=== PATIENT | male | born 1970 | race African-American/Black ===

== ENCOUNTER 2016-12-10 11:34 | Emergency (ER) | payer OTHER ==
[~2016-12-10] VITALS: Ht 177.8 cm; Wt 67.1 kg
[~2016-12-10 11:34] MED LIST: LISINOPRIL20 MG PO; NO DOZ200 MG PO; NORCO 5-325 TA1 EACH PO; PREDNISONE50 MG PO
[2016-12-10] MEDS ORDERED: PROAIR HFA8.5 GM INH (12:43)
[2016-12-10] MEDS ORDERED: AZITHROMYCIN 2250 MG PO (12:43)
[2016-12-10 12:53] VITALS: BP 134/85
== END 2016-12-10 12:56 | disposition home or self-care (01) ==
LOC: ER 11:34
DX: J18.8 Other pneumonia, unspecified organism (principal); M79.1 Myalgia; I10 Essential (primary) hypertension; F17.210 Nicotine dependence, cigarettes, uncomplicated; F10.99 Alcohol use, unspecified with unspecified alcohol-induced disorder

== ENCOUNTER 2018-09-18 09:40 | Emergency (ER) | payer OTHER ==
[~2018-09-18] VITALS: Ht 177.8 cm; Wt 68.0 kg
[~2018-09-18 09:40] MED LIST changes: +AZITHROMYCIN 2250 MG PO; +PROAIR HFA8.5 GM INH
[2018-09-18 10:10] LABS: URINE CLARITY CLEAR; URINE COLOR YELLOW
[2018-09-18 10:11] LABS: URINE BILIRUBIN NEGATIVE (Negative); URINE BLOOD TRACE (Negative); URINE GLUCOSE-RANDOM* NEGATIVE (Negative); URINE KETONES NEGATIVE (Negative); URINE LEUKOCYTES NEGATIVE (Negative); URINE NITRITE NEGATIVE (Negative); URINE PROTEIN (DIPSTICK) NEGATIVE (Negative); URINE UROBILINOGEN 0.2 E.U./dl (0.2-1.0)
[2018-09-18 10:23] LABS: ABSOLUTE NEUTROPHILS 3.9 thou/uL (1.4-8.2); BASOPHILS 1.2 % (0.0-2.0); EOSINOPHILS 1.5 % (0.0-3.0); HEMOGLOBIN 15.8 gm/dL (14.0-18.0); LYMPHOCYTES 29.7 % (24.0-44.0); MCH 32.1 pg (26.0-34.0); MCHC 34.4 g/dL (28.0-37.0); MCV 93.2 fL (80.0-100.0); MONOCYTES 7.2 % (1.0-8.0); PLATELET COUNT 229 thou/uL (150-400); POLYS 60.4 % (36.0-66.0); RBC 4.93 mil/uL (4.50-6.00); RDW 13.8 % (10.5-14.5); WBC 6.4 thou/uL (4.0-11.0)
[2018-09-18 10:26] LABS: ANION GAP 8 mmol/L (7-16); BUN 10 mg/dL (7-18); CALCIUM 9.2 mg/dL (8.5-10.1); CHLORIDE 104 mmol/L (98-107); CO2 28 mmol/L (21-32); CREATININE 1.1 mg/dL (0.7-1.3); GLUCOSE 128 mg/dL (74-106); SODIUM 140 mmol/L (136-145)
[2018-09-18 10:35] LABS: TROPONIN-I <0.06 ng/mL (<0.06)
[2018-09-18] MEDS ORDERED: NORVASC5 MG PO (11:15)
[2018-09-18 12:16] VITALS: BP 146/87
--- NOTE | 2018-09-18 22:18 | EKG ---
[place] [address] [facility] [email or web address] [address] ELECTROCARDIOGRAM REPORT Name: TESFAYEJERRY RODRIGUES Room #: DEP [facility] [id number] Admission: 09/18/18 Attend Phys: Discharge: 09/18/18 Date of : 66 Report #: [id number] THIS REPORT FOR: //name// [facility] ED Test Date: 2018-09-18 Test Time: 10:02:51 Pat Name: JERRY CARLIN Department: Room: Gender: Retail Helper: : 1970 Requested By: Sara Mccarthy Order Number: [id number] MD: Eugene Lucas Measurements Intervals Cook Rate: 78 P: 69 MI: 133 QRS: 43 QRSD: 91 T: 45 QT: 384 QTc: 438 Interpretive Statements Sinus rhythm LAE, consider biatrial enlargement Compared to ECG 10/25/2014 13:47:59 No significant changes Electronically Signed On 09-18-2018 22:18:35 RETORT ENGINEER by Eugene Lucas [email or web address] <ELECTRONICALLY SIGNED> By: Eugene Lucas MD 09/18/18 2218 1002 1002 Eugene Lucas MD /GREGG
== END 2018-09-18 11:25 | disposition home or self-care (01) ==
LOC: ER 09:40
PROVIDERS: Student in an Organized Health Care Education/Training Program
DX: I10 Essential (primary) hypertension (principal); F17.210 Nicotine dependence, cigarettes, uncomplicated

== ENCOUNTER → 2019-10-16 | Outpatient (CLI) | payer OTHER ==
[~2019-10-16] MED LIST changes: +NORVASC5 MG PO
--- NOTE | 2019-10-18 09:28 | PATH ---
[facility] [place] [address] PATHOLOGY RPT PROCEDURE Name: JERRY ADAMS Room #: REG KLAUDIA Winslow#: [id number] Admission: 10/16/19 Date of : 66 Discharge: Report #: [id number] Path Case #: [id number] [facility] Accession Number: [id number] . 01 Material submitted: . PART A: cecum - CECAL MASS PART B: sigmoid colon - POLYP AT SIGMOID COLON x2. Modifiers: 2 . 01 Clinical history: . Pre-OP DX: Screening Post-OP DX: Colon mass . 02 Diagnosis: A. 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 - No definite invasive malignancy identified. . B. Polyp x2, at sigmoid colon, endoscopic biopsy: - Inflamed hyperplastic polyp. - Negative for dysplasia. (IUV:pit 10/17/2019) QTP 10/17/2019 1356 Local . 02 Comment: Dr. Rebecca Reddy has seen a paper sales representative slide of part A and concurs with my diagnosis. (IUV:pit 10/17/2019) . 02 Electronically signed: . Amber Mann MD, Pathologist NPI- [id number] . 01 Gross description: . A. Received in formalin labeled "Jerry Adams, cecal mass," are multiple segments of schuster soft tissue measuring 1.6 x 0.6 x 0.1 cm in aggregate dimensions. The specimen is filtered and entirely submitted in cassette A1. . B. Received in formalin labeled "Jerry Adams, polyp at sigmoid colon," and additionally labeled on the requisition as x2," are 3 segments of schuster soft tissue measuring 0.5 x 0.5 x 0.3 cm in aggregate dimensions and ranging from 0.4 to 0.5 cm in maximum dimension. The specimen is submitted entirely in cassette B1. (TSD; 10/16/2019) TOB/TOB 10/16/2019 1753 Local . 02 [place] [address] PATHOLOGY RPT PROCEDURE Name: JERRY ADAMS Room #: REG KLAUDIA Winslow#: [id number] Admission: 10/16/19 Date of : 66 Discharge: Report #: [id number] Path Case #: [id number] Pathologist provided ICD-10: D12.0, K63.5, Z12.11 . 02 CPT . 117401, 632913 Specimen Comment: A courtesy copy of this report has been sent to [phone] Specimen Comment: [phone] Specimen Comment: Report sent to / DR LEVINE Specimen Comment: A duplicate report has been generated due to demographic updates. Performed at: [address], [place], [place] [id number] MD Laci Carlisle MD Phone: [phone] Performed at: [address] [id number] MD Amber Mann MD Phone: [phone]
== END | disposition home or self-care (01) ==
LOC: GI 00:02
DX: Z12.11 Encounter for screening for malignant neoplasm of colon (principal); D12.0 Benign neoplasm of cecum; K51.40 Inflammatory polyps of colon without complications; K57.30 Diverticulosis of large intestine without perforation or abscess without bleeding; K64.8 Other hemorrhoids; K63.89 Other specified diseases of intestine; I10 Essential (primary) hypertension; J44.9 Chronic obstructive pulmonary disease, unspecified; Z98.890 Other specified postprocedural states; Z79.899 Other long term (current) drug therapy
CPT/HCPCS: 62110; 62900

== ENCOUNTER 2019-10-31 06:08 | Inpatient (IN) | payer OTHER ==
[~2019-10-31] VITALS: Ht 180.3 cm; Wt 72.6 kg
[~2019-10-31 06:08] MED LIST changes: +AMLODIPINE BESY10 MG PO; +ASA81BEC PO; +LIPITOR 40 MG T40 M1 PO; +LISINOPRIL-HCT1 EAC2 PO; +TRELEGY ELLIPT1 EACH INH
[2019-10-31 07:07] LABS: CALCIUM 9.6 mg/dL (8.5-10.1); CREATININE 1.3 mg/dL (0.7-1.3); POTASSIUM 3.5 mmol/L (3.5-5.1)
[2019-10-31 07:16] VITALS: BP 143/88
--- NOTE | 2019-10-31 14:42 | NUR ---
ASSUMED CARE AT 1100, SHIFT ASSESSMENT DONE, MEDS GIVEN, VSS. ADMISSION DONE. POST OP BOWEL RESECTION, HAS 3 DERMABOND SITES, CLEAN, DRY, INTACT. MIDLINE PRINEO DRESSING TO ABDOMEN, CLEAN, DRY, INTACT. REPORTED PAIN TO ABDOMEN, PRN PAIN MEDS GIVEN WITH SOME RELIEF. WILL CONTINUE TO ASSESS AND ASSIST WITH ADLs NEEDED.
[2019-10-31 16:10] VITALS: BP 117/79
[2019-10-31 19:35] VITALS: BP 124/90
--- NOTE | 2019-11-01 01:24 | NUR ---
PATIENT ASSESSED AND IS ALERT X 4. SKIN WARM AND DRY. RESP EVEN AND UNLABORED. LAYING IN BED. LUNGS CTA. ABDOMEN SOFT WITH HYPO BS. GALLARDO INTACT WITH YELLOW URINE IN LARGE AMOUNTS. ABDOMEN HAS 3 DURABOND SITE AND 1 MIDSTERNAL WITH DURABOND. NO DRAINAGE NOTED FROM ANY SITES. PATIENT GIVEN PAIN MEDICATION WITH GOOD RELIEF. PATIENT SLEPT WELL UNTIL 0000, THAN WOKE UP AND WANTED TO DANGLE. KEVIN DANGLING WELL. AT BEDSIDE SLEEPING. DENIES ANY NEEDS. IV SITE IN RIGHT FA INFUSING IV FLUIDS WELL. OTHER SITE HEALTHY.ON ROOM AIR. STRICT CLEAR LIQUIDS KEVIN LIQUIDS WELL. CONT PLAN OF CARE.
[2019-11-01 03:15] VITALS: BP 143/90
[2019-11-01 06:16] LABS: HEMATOCRIT 42.7 % (42.0-52.0); HEMOGLOBIN 13.9 gm/dL (14.0-18.0); MCHC 32.7 g/dL (28.0-37.0); MCV 94.9 fL (80.0-100.0); RBC 4.5 mil/uL (4.50-6.00); RDW 12.6 % (10.5-14.5); WBC 15.6 thou/uL (4.0-11.0)
[2019-11-01 06:53] LABS: ALBUMIN 3.6 g/dL (3.4-5.0); CREATININE 0.9 mg/dL (0.7-1.3); MAGNESIUM 2.1 mg/dL (1.8-2.4); PHOSPHORUS 2.7 mg/dL (2.5-4.9); POTASSIUM 4.3 mmol/L (3.5-5.1)
[2019-11-01 08:20] VITALS: BP 136/86
--- NOTE | 2019-11-01 12:42 | EKG ---
[facility] [place] [address] [place] [address] ELECTROCARDIOGRAM REPORT Name: JERRY CARLIN Room #: 441- ADM IN M.R.#: [id number] Admission: 10/31/19 Attend Phys: Marco Hong MD Discharge: Date of : 66 Report #: [id number] THIS REPORT FOR: cc: LUIS E - Brianne family physician/PCP LUIS E - Brianne family physician/PCP Jorge Perez MD [facility] THIS REPORT FOR: //name// [facility] Test Date: 2019-10-31 Test Time: 06:39:00 Pat Name: JERRY CARLIN Department: Room: [facility] Gender: M Inspector Multifocal Lens: EDD : 1970 Requested By: Marco Hong Order Number: [id number] MD: Jorge Perez Measurements Intervals [place] Rate: 76 P: 73 VA: 126 QRS: 60 QRSD: 99 T: 48 QT: 391 QTc: 440 Interpretive Statements Sinus rhythm Poor R wave progression Baseline wander in lead(s) II,aVF Compared to ECG 09/18/2018 10:02:51 No significant changes Electronically Signed On 10-31-2019 9:17:56 BLOCK SAWYER by Jorge Perez [email or web address] <ELECTRONICALLY SIGNED> By: Jorge Perez MD, [facility] 10/31/19 0917 0639 0639 Jorge Perez MD, [facility] /EPI
--- NOTE | 2019-11-01 13:41 | NUR ---
Chart reviewed and case discussed with the care team. Pt was indep and working fulltime prior to admission. He has health insurance coverage through his employer. He lives with his sign other. Pt is progressing s/p lap hemicolectomy d/t cecal polyp. The pt will be advancing his diet and activity as tolerated. No cm interventions indicated at this time. Will remain available should dc needs arise.
--- NOTE | 2019-11-01 15:53 | NUR ---
SPIRITUAL CARE CONSULT [phone] COMPLETED BY THIS RESIDENT CARE PROVIDER.
[2019-11-01 17:19] VITALS: BP 140/88
--- NOTE | 2019-11-01 18:31 | NUR ---
PT ASSESSED AT START OF SHIFT. DR. RUTLEDGE IN EARLY. PT ENC TO WALK AND HAS AMBULATED SEVERAL TIMES IN THE HALLS AND SAT UP IN THE CHAIR. MEDS GIVEN FOR ABD PAIN W/ SOME RELIEF. HAD SOME NAUSEA-ZOFRAN GIVEN WHICH RELIEVED IT. RESTING IN BED AT THIS TIME.
[2019-11-01 19:07] VITALS: BP 144/89
--- NOTE | 2019-11-02 02:31 | NUR ---
PT OBSERVED SITTING UP IN BED RESTING AT START OF SHIFT.PT C/O NAUSEA,MANAGED WITH MED,EFFECTIVE.PT NOT ABLE TO GET UP AND WALK THIS SHIFT.LAP SITE C/D/I COVERED WITH DERMABOND.PT STATED THAT HE HAS BEEN BELCHING BUT HAS NOT PASSED GAS YET.PT'S SIG OTHER HERE TO VISIT FOR A BRIEF PERIOD BEFORE SHE LEFT.PT RESTING ON HIS BED AT THIS TIME.CALL LIGHT WITHIN REACH.
[2019-11-02 04:17] VITALS: BP 147/87
[2019-11-02 06:04] LABS: HEMATOCRIT 44.1 % (42.0-52.0); HEMOGLOBIN 14.3 gm/dL (14.0-18.0); MCH 31.6 pg (26.0-34.0); MCHC 32.5 g/dL (28.0-37.0); MCV 97.2 fL (80.0-100.0); RBC 4.53 mil/uL (4.50-6.00)
[2019-11-02 06:41] LABS: ALBUMIN 3.2 g/dL (3.4-5.0); CALCIUM 8.7 mg/dL (8.5-10.1); CREATININE 0.9 mg/dL (0.7-1.3); POTASSIUM 4.3 mmol/L (3.5-5.1)
[2019-11-02 08:29] VITALS: BP 153/94
--- NOTE | 2019-11-02 08:32 | NUR ---
REC CARE OF PT APPROX 0715, BREATHING FAST AND SHALLOW D/T NAUSEA, ENCOURAGED W/EFFECTIVE DEEP SLOW INHALATIONS/EXHALATIONS, MEDICATING FOR NAUSEA AND PAIN, ORAL PAIN MEDS LATER AFTER HE INGESTS SOME CL HE HASN'T IN HOURS. A&0X4, AMB INDEPENDENTLY, LAST BM NIGHT PRIOR TO SUGERY, DOES NOT HAVE PROBLEMS W/CONSTIPATION NORMALLY, BOWEL SHOUND HYPOACTIVE, WILL CONTINUE TO MONITOR. SEE SEPARATE INTERVENTIONS FOR ASSESSMENTS
--- NOTE | 2019-11-02 15:26 | NUR ---
PT CARE TAKEN OVER FROM TANYA KWON. PT ASSESSED AND RESTING IN BED, NAPPING OFF AND ON, PT'S SIG OTHER "AT HOME, RESTING" 2 LAP SITES CARLOS, WELL APPROXIMATED, SO BLEEDING, REDNESS, NEW TENDERNESS, MID ABDOMINAL DRESSING CDI, PT UNDERSTANDS PLAN OF CARE, HAS CALL LIGHT IN BED. WILL MONITOR
[2019-11-02 18:58] VITALS: BP 140/90
--- NOTE | 2019-11-03 03:07 | NUR ---
PT IN A GOOD MOOD AT STATR OF SHIFT.PT C/O ABD PAIN,MANAGED WITH MED. PT C/O TENDERNESS ON HIS IV SITE,WAS RED AND TENDER TO TOUCH.NEW IV STARTED ON HIS LFA.LAP SITES AND MIDLINE INCISION C/D/I.UP ADLIB IN ROOM WITH A STEADY GAIT.PT RESTING ON HIS BED AT THIS TIME.CALL LIGHT WITHIN REACH.
[2019-11-03 03:38] LABS: HEMATOCRIT 40.8 % (42.0-52.0); HEMOGLOBIN 13.3 gm/dL (14.0-18.0); MCHC 32.5 g/dL (28.0-37.0); MCV 95.2 fL (80.0-100.0); RBC 4.28 mil/uL (4.50-6.00); RDW 12.6 % (10.5-14.5)
[2019-11-03 03:55] LABS: ALBUMIN 2.9 g/dL (3.4-5.0); CALCIUM 8.3 mg/dL (8.5-10.1); CREATININE 0.9 mg/dL (0.7-1.3); PHOSPHORUS 2.8 mg/dL (2.5-4.9); POTASSIUM 3.9 mmol/L (3.5-5.1)
[2019-11-03 04:25] VITALS: BP 115/65
[2019-11-03 08:27] VITALS: BP 120/76
--- NOTE | 2019-11-03 11:39 | NUR ---
PT A&OX4.IV INTACT IN L FA. AMBULATES SELF IN ROOM. LAPROSCOPIC INCISIONS X3 WITH DERMA PRATT C/D/I. MIDLINE INCISION WITH ADITHYA C/D I. NO NAUSEA NOTED. PT PASSING FLATUS NO BM OF YET. WILL CONT POC.
--- NOTE | 2019-11-03 13:08 | PATH ---
[facility] [place] [address] PATHOLOGY RPT PROCEDURE Name: JERRY ADAMS Room #: 441-P ADM IN M.R.#: [id number] Admission: 10/31/19 Date of : 66 Discharge: Report #: [id number] Path Case #: [id number] LCA Accession Number: [id number] . 01 Material submitted: . colon - RIGHT COLON. Modifiers: right . 01 Clinical history: . polyp of colon . 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 The tumor is 5.0 cm from the proximal margin, greater than 10.0 cm from the distal margin, and 5.0 cm from the mesenteric margin. - Lymph nodes (12 negative for malignancy). - Appendix with no diagnostic changes. (SANJUANA:naeem; 11/02/2019) . . . Surgical Pathology Cancer Case Summary . COLON AND RECTUM: Resection, Including Transanal Disk Excision of Rectal Neoplasms . Procedure ___ Right hemicolectomy . Tumor Site ___ Cecum . Tumor Size Greatest dimension (centimeters): 3.2 x 2.7 x 2.0 cm polyp invasive component 2 cm Macroscopic Tumor Perforation ___ Not identified . Histologic Type ___ Adenocarcinoma . Histologic Grade ___ G2: Moderately differentiated . [facility] [address] [place] [address] PATHOLOGY RPT PROCEDURE Name: JERRY ADAMS Room #: 441-P [facility] IN ..#: [id number] Admission: 10/31/19 Date of : 66 Discharge: Report #: [id number] Path Case #: [id number] . Tumor Extension ___ Tumor invades muscularis propria . Margins . Proximal Margin ___ Uninvolved by invasive carcinoma + Distance of tumor from margin: 5.0 cm . . Distal Margin ___ Uninvolved by invasive carcinoma + Distance of tumor from margin (millimeters or centimeters): 10.0 cm . . Radial or Mesenteric Margin ___ Uninvolved by invasive carcinoma Distance of tumor from margin 5.0 cm . Deep Margin ___ Uninvolved by invasive carcinoma . Mucosal Margin ___ Not applicable . Treatment Effect ___ No known presurgical therapy . Lymphovascular Invasion ___ Not identified . Perineural Invasion ___ Not identified . + Type of Polyp in Which Invasive Carcinoma Arose + ___ Tubulovillous adenoma . Tumor Deposits ___ Not identified . Regional Lymph Nodes . Number of Lymph Nodes Involved: 0 Number of Lymph Nodes Examined: 12 . Pathological Stage . [facility] [place] [address] PATHOLOGY RPT PROCEDURE Name: JERRY ADAMS Room #: 441-P [facility] IN M.R.#: [id number] Admission: 10/31/19 Date of : 66 Discharge: Report #: [id number] Path Case #: [id number] Primary Tumor (pT) ___ pT2:Tumor invades the muscularis propria . Regional Lymph Nodes (pN) ___ pN0:No regional lymph node metastasis . + Additional Pathologic Findings + ___ Other (specify): Tubulovillous adenoma . . + Ancillary Studies MSI ordered on block A4 and once those are available, an additional report will follow. . . + Comment(s) Title I Director sections of the tumor was also reviewed by Dr. Adams Jensen. . (SHA:naeem; 11/02/2019) [facility] 11/02/2019 1423 Local . 02 Comment: Title I Director sections of tumor reviewed by Dr. Adams Jensen. . 02 Addendum: . MICROSATELLITE INSTABILITY REPORT (MSI): . At the request of the oncologist, mismatch repair (MMR) protein immunohistochemical staining was performed. . Specimen: Formalin fixed paraffin embedded tissue - right colon Specimen ID: [id number] Reason for testing: To evaluate for evidence of defective mismatch repair proteins. Method: Immunohistochemical staining for the presence or absence of protein expression of one or more of the following MMR protein markers: MLH1, MSH2, MSH6 and PMS2. Tumor type: Invasive moderately differentiated adenocarcinoma . Results: MLH1 - Preserved MSH2 - Preserved MSH6 - Preserved PMS2 - Preserved . Mismatch Repair Status: MMR Proficient (MMR-P) [address] [address] PATHOLOGY RPT PROCEDURE Name: TESFAYEJERRY RODRIGUES Room #: 441-[facility] IN [facility].#: [id number] Admission: 10/31/19 Date of : 66 Discharge: Report #: [id number] Path Case #: [id number] . Interpretation: . (MMR-P) All four MMR proteins are preserved within tumor cells. This suggests the presence of normal DNA mismatch repair function within the tumor and an observable defect in mismatch repair is not identified. The likelihood that this patient has an inherited germline mutation syndrome due to defective mismatch repair is reduced but not totally eliminated. If the patient has a strong personal or family history of HPNCC/More syndrome related cancers (colorectal, endometrial, gastric, ovarian, pancreatic, ureter/renal pelvis, biliary tract, brain, small bowel and Whitehouse-Nael syndrome), consider MSI testing by PCR methodology. Suggest clinical correlation and follow up. . These test results are designed for screening purposes only and are useful tools in identifying cancer patients that are more likely to have More Syndrome related diagnoses. Tests should be interpreted in the context of clinical findings, family history and laboratory data. Abnormal IHC results for MMR protein expression are not considered diagnostic for More Syndrome. (SHA/db; 11/03/2019) . . Professional services performed by [facility] at [facility], [address], [place] [address]. Technical services performed by [facility] at [address] [place] [address], [address], [place] [address]. MBR/11/03/2019 Addendum Electronically Signed by Gilson Olmos MD. Pathologist . 02 Electronically signed: . Gilson Olmos MD, Pathologist NPI- [id number] . 01 Gross description: . The specimen is received in formalin, labeled "Jerry Adams, right colon" and consists of a right hemicolectomy specimen with terminal ileum (4.7 cm in length and 2.2 cm in diameter), appendix (7.5 cm in length and 0.5 cm in diameter), ascending colon (12.8 cm in length and up to 5.0 cm in diameter), and mesocolic fat up to 7.8 cm. The serosa is pink-schuster with thin hemorrhagic adhesions at the cecum (possible tattoo ink). Both margins have a staple line. Opening reveals a polypoid bosselated pink-schuster mass at the cecal pouch/appendiceal orifice measuring 3.2 x 2.7 x 2.0 cm. The mass is greater than 5 cm from the proximal margin, greater than 10 cm from the distal margin, and 5.0 cm from the mesenteric margin. The cecal serosa is inked black. No additional mass lesions are identified. The specimen is held for additional fixation. (SDY; 10/31/2019) . Sectioning the mass reveals no gross invasion of the muscular wall. [facility] [address] [place] [address] PATHOLOGY RPT PROCEDURE Name: JERRY ADAMS Room #: 441-P ADM IN M.R.#: [id number] Admission: 10/31/19 Date of : 66 Discharge: Report #: [id number] Path Case #: [id number] Sectioning the appendix reveals a dilated to pinpoint lumen. The mesocolic fat reveals multiple lymph node candidates. Title I Director sections are submitted as follows: . A1: Proximal margin A2: Distal margin A3-A4: Full-thickness mass to include appendix A5-A6: Additional mass A7: Appendix A8: 1 serially sectioned lymph node A9 to: 1 trisected lymph node A10: 2 bisected lymph nodes, one inked black A11: 2 trisected lymph nodes, one inked black A12: 2 bisected lymph nodes, one inked black A13: 2 bisected lymph nodes, one inked black A14: 2 intact lymph node (SDY; 11/01/2019) SYU/SYU 11/01/2019 1407 Local . 02 Pathologist provided ICD-10: C18.0 . 02 CPT . 056893, [id number], U48446 Specimen Comment: A duplicate report has been generated due to demographic updates. Performed at: [address], [place] [id number] MD Laci Carlisle MD Phone: [phone] Performed at: [address] [id number] MD Amber Mann MD Phone: [phone]
[2019-11-03 14:59] VITALS: BP 131/87
[2019-11-03 19:43] VITALS: BP 123/80
[2019-11-04 04:15] VITALS: BP 113/74
[2019-11-04 06:47] LABS: HEMATOCRIT 40.3 % (42.0-52.0); HEMOGLOBIN 13.4 gm/dL (14.0-18.0); MCH 31.4 pg (26.0-34.0); MCHC 33.2 g/dL (28.0-37.0); MCV 94.7 fL (80.0-100.0); RBC 4.26 mil/uL (4.50-6.00); RDW 12.6 % (10.5-14.5); WBC 6.2 thou/uL (4.0-11.0)
[2019-11-04 07:14] LABS: ALBUMIN 3.1 g/dL (3.4-5.0); CALCIUM 8.8 mg/dL (8.5-10.1); CREATININE 1.1 mg/dL (0.7-1.3); PHOSPHORUS 3.2 mg/dL (2.5-4.9)
--- NOTE | 2019-11-04 08:06 | NUR ---
ASSUMED PT CARE AT 1700. LAP SITES DRY AND INTACT. SURGICAL SITE DRY AND INTACT. PT REPORTS SORENESS IN ABDOMEN. ENEMA GIVEN TONIGHT, SMALL OUTPUT. PT REPORTS ANOTHER BOWEL MOVEMENT LATER IN SHIFT. IS FEELING MUCH BETTER NOW. PAIN MANAGED WITH PO MEDS THIS MORNING. UP AD TAVO. NEW IV PLACED, FLUIDS RUNNING ORDERED. VSS. HOPING TO GO HOME SOON.
[2019-11-04 12:01] VITALS: BP 112/78
--- NOTE | 2019-11-04 16:10 | NUR ---
ASSUMED CARE OF THE PT AT 0700. PT IS AMBULATORY, NOT A FALL RISK. PTS IV INFILTRATED, CALLED DOCTOR AND OK TO NOT REPLACE IV. EMAR UPDATED PER DOCTOR, SEE EMAR. PAIN CONTROLLED BY PAIN MEDS, SEE EMAR. PT HAD BM IN THE AM. PTS ABDOMEN IS HARD AND DISTENDED, WITH MINIMAL BOWEL SOUNDS HEARD. BED IN LOWEST POSITION AND CALL LIGHT IS WITHIN REACH. SX SITE IS DRY, NO DRAINAGE OR ODOR. WILL CONTINUE TO MONITOR THE PT.
[2019-11-04 19:05] VITALS: BP 119/80
[2019-11-04 19:20] VITALS: BP 125/81
--- NOTE | 2019-11-05 03:12 | NUR ---
ASSESSMENT DOCUMENTED.PT BEEN RESTING IN NO ACUTE DISTRESS.A/OX4.VSS.RA W/O RESP DISTRESS.POST LAP HEMICOLOCTOMY.INCISIONS CARLOS.CLOSED WITH DERMABOND,NO S/SX OF INFECTION NOTED.PAIN MANAGED WITH BOTH SCHEDULED AND PRN PAIN MED.AD TAVO TO BR.POC IS TO DISCHAGE TO HOME THIS AM.WILL CONT TO MONITOR PER POC.
[2019-11-05 04:00] VITALS: BP 130/82
[2019-11-05 08:22] VITALS: BP 120/78
[2019-11-05] MEDS ORDERED: NEURONTIN 300M300 M2 PO (08:24)
[2019-11-05] MEDS ORDERED: OXYCODONE HCL5 M1 PO (08:25)
[2019-11-05 10:30] VITALS: BP 120/78
--- NOTE | 2019-11-05 13:20 | NUR ---
ASSUMED CARE OF THE PT AT 0700. PT IS AMBULATORY. SUTURE SITE IN MID ABDOMEN IS DRY AND INTACT WITH NO DRAINAGE. NO IV ACCESS. BM TODAY. STOMACH LESS DISTENDED, STILL HARD. PT WAS DISCHARGED TO HOME, BELONGINGS SENT WITH PT AND DISCHARGE PPWK SIGNED. PT DISCHARGED.
== END 2019-11-05 11:06 | disposition home or self-care (01) | DRG 330 ==
LOC: EDSTATUS 06:08 → 4S 06:09 → TBA 06:09 → PRE 06:09 → 4S 11:15 → OR 11:40 → 4S 11-05 11:06
PROVIDERS: ADMIT Surgery
PROC: 0DTF4ZZ Resection of Right Large Intestine, Percutaneous Endoscopic Approach (ICD-10-PCS; principal; 2019-10-31)
DX: C18.9 Malignant neoplasm of colon, unspecified (principal); K56.7 Ileus, unspecified; K63.5 Polyp of colon; J44.9 Chronic obstructive pulmonary disease, unspecified; G89.18 Other acute postprocedural pain; M19.90 Unspecified osteoarthritis, unspecified site; I10 Essential (primary) hypertension; E78.5 Hyperlipidemia, unspecified
CPT/HCPCS: 10195; 50010; 50101; 50249; 50386; 50455; 50525; 50555; 50558; 50819; 51708; 51712; 52265; 53307; 53310; 54118; 56524; 56525; 56526; 56528; 56805; 57092; 57108; 62110; 62900; 70005